=== PATIENT | female | born 2000 | race African-American/Black ===

== ENCOUNTER 2018-01-28 23:34 | Emergency (ER) | payer OTHER ==
[~2018-01-28] VITALS: Ht 162.6 cm; Wt 147.9 kg
[2018-01-29 00:13] LABS: BASOPHIL % 0.8 % (0-2)
[2018-01-29 00:17] LABS: PLATELET COUNT 600 x10^3mcL (130-400); RED CELL DISTRIBUTION WIDTH 21.5 % (11.5-14.5)
[2018-01-29 00:23] LABS: CALCIUM 9.6 mg/dL (8.5-10.1); CARBON DIOXIDE 24.8 mmol/L (21-32); CHLORIDE SERUM 105 mmol/L (98-107); CREATININE SERUM 0.8 mg/dL (0.6-1.0); GFR1 > 60 mL/min; GLUCOSE SERUM 110 mg/dL (74-106); POTASSIUM SERUM 3.8 mmol/L (3.5-5.1); SODIUM SERUM 139 mmol/L (136-145)
[2018-01-29 00:28] LABS: ALBUMIN 3.7 g/dL (3.4-5.0); ALKALINE PHOSPHATASE 99 U/L (46-116); ALT/SGPT 29 U/L (14-59); AST/SGOT 22 U/L (15-37); BILIRUBIN TOTAL 0.2 mg/dL (0.20-1.00); LIPASE 91 IU/L (73-393); TOTAL PROTEIN, SERUM 7.9 g/dL (6.4-8.2)
[2018-01-29 00:37] LABS: rbc morphology (normal/abnorm) ABNORMAL (NORMAL)
[2018-01-29 00:38] LABS: ovalocyte/elliptocyte 2+
[2018-01-29 02:51] VITALS: BP 124/76
== END 2018-01-29 02:51 | disposition home or self-care (01) ==
LOC: ED 23:34
PROVIDERS: Emergency Medicine
DX: R07.89 Other chest pain (principal)
CPT/HCPCS: 36415; 85378; Q0092

== ENCOUNTER 2018-02-26 22:32 | Emergency (ER) | payer OTHER ==
[~2018-02-26] VITALS: Ht 162.6 cm; Wt 145.1 kg
[2018-02-26 23:00] VITALS: Ht 162.6 cm; Wt 145.1 kg
[2018-02-26 23:36] LABS: UA SPECIFIC GRAVITY 1.025 (1.005-1.035); microscopic required? YES; urine erythrocyte 3+ (NEGATIVE)
[2018-02-26 23:39] LABS: BASOPHIL % 0.3 % (0-2)
[2018-02-26 23:45] LABS: CALCIUM 9.2 mg/dL (8.5-10.1); CARBON DIOXIDE 24.5 mmol/L (21-32); CHLORIDE SERUM 103 mmol/L (98-107); CREATININE SERUM 0.9 mg/dL (0.6-1.0); GFR1 > 60 mL/min; GLUCOSE SERUM 102 mg/dL (74-106); POTASSIUM SERUM 3.7 mmol/L (3.5-5.1); SODIUM SERUM 139 mmol/L (136-145)
[2018-02-26 23:47] LABS: RED CELL DISTRIBUTION WIDTH 19.9 % (11.5-14.5)
[2018-02-26 23:48] LABS: PLATELET COUNT 558 x10^3mcL (130-400)
[2018-02-26 23:50] LABS: ALBUMIN 3.8 g/dL (3.4-5.0); ALKALINE PHOSPHATASE 102 U/L (46-116); ALT/SGPT 26 U/L (14-59); AMYLASE 61 U/L (25-115); AST/SGOT 15 U/L (15-37); BILIRUBIN TOTAL 0.2 mg/dL (0.20-1.00); LIPASE 89 IU/L (73-393)
[2018-02-26 23:56] LABS: ovalocyte/elliptocyte 1+; rbc morphology (normal/abnorm) ABNORMAL (NORMAL)
[2018-02-27 01:32] VITALS: BP 131/87
== END 2018-02-27 01:32 | disposition home or self-care (01) ==
LOC: ED 22:32
PROVIDERS: Emergency Medicine
DX: N94.6 Dysmenorrhea, unspecified (principal); N39.0 Urinary tract infection, site not specified; E66.9 Obesity, unspecified; D72.829 Elevated white blood cell count, unspecified; Z68.43 Body mass index [BMI] 50.0-59.9, adult
CPT/HCPCS: 36415; 83880; J0696

== ENCOUNTER 2018-05-28 02:13 | Inpatient (IN) | payer OTHER ==
[~2018-05-28] VITALS: Ht 162.6 cm; Wt 148.8 kg
[2018-05-28 06:15] LABS: CALCIUM 9.7 mg/dL (8.5-10.1); CARBON DIOXIDE 24.1 mmol/L (21-32); CHLORIDE SERUM 106 mmol/L (98-107); CREATININE SERUM 0.8 mg/dL (0.6-1.0); GFR1 > 60 mL/min; GLUCOSE SERUM 111 mg/dL (74-106); POTASSIUM SERUM 3.9 mmol/L (3.5-5.1); SODIUM SERUM 142 mmol/L (136-145)
[2018-05-28 06:20] LABS: ALBUMIN 3.6 g/dL (3.4-5.0); ALKALINE PHOSPHATASE 98 U/L (46-116); ALT/SGPT 28 U/L (14-59); AST/SGOT 19 U/L (15-37); BILIRUBIN TOTAL 0.26 mg/dL (0.20-1.00)
[2018-05-28 07:05] LABS: RED CELL DISTRIBUTION WIDTH 20.3 % (11.5-14.5)
[2018-05-28 07:13] LABS: PLATELET COUNT 517 x10^3mcL (130-400)
[2018-05-28] MEDS ORDERED: NATURAL IRON65 MG PO (09:59)
[2018-05-28 10:49] LABS: PHOSPHOROUS 4.4 mg/dL (2.5-4.9)
[2018-05-28 10:50] VITALS: BP 134/65
[2018-05-28 10:55] LABS: T3 TOTAL 1.14 ng/mL
[2018-05-28 10:56] LABS: FREE T4 0.9 ng/dL (0.76-1.46); FREE THYROXINE INDEX 2.3 ug/dL (1.4-4.5); T4(THYROXINE) 7.3 ug/dL (4.7-13.3)
[2018-05-28 11:05] VITALS: BP 134/65
[2018-05-28 12:34] VITALS: BP 116/64
[2018-05-28 12:57] LABS: BAND NEUTROPHIL 3 % (0-10); MONOCYTE 5 % (0-7); SEGMENTED NEUTROPHILS 81 % (37-75)
[2018-05-28 12:58] LABS: ovalocyte/elliptocyte 1+; rbc morphology (normal/abnorm) ABNORMAL (NORMAL)
[2018-05-28 12:59] LABS: PLATELET MORPHOLOGY LARGE PLATELET SEEN
[2018-05-28 17:00] VITALS: BP 125/54
[2018-05-28 17:40] LABS: microscopic required? YES; urine erythrocyte TRACE (NEGATIVE)
[2018-05-28 17:52] LABS: AMPHETAMINE QUAL UR NONE DETECTED (See below)
[2018-05-28 19:34] LABS: TOTAL IRON BINDING CAPACITY 423 ug/dL (250-450)
[2018-05-28 19:42] LABS: IRON 18 ug/dL (50-170)
[2018-05-29 06:00] VITALS: BP 136/71
[2018-05-29 07:02] LABS: CALCIUM 9.3 mg/dL (8.5-10.1); CARBON DIOXIDE 23.2 mmol/L (21-32); CHLORIDE SERUM 109 mmol/L (98-107); CREATININE SERUM 0.7 mg/dL (0.6-1.0); GFR1 > 60 mL/min; GLUCOSE SERUM 99 mg/dL (74-106); MAGNESIUM 2.1 mg/dL (1.8-2.4); PHOSPHOROUS 4.6 mg/dL (2.5-4.9); SODIUM SERUM 145 mmol/L (136-145)
[2018-05-29 07:05] LABS: BASOPHIL % 0.1 % (0-2)
[2018-05-29 07:20] LABS: PLATELET COUNT 461 x10^3mcL (130-400); RED CELL DISTRIBUTION WIDTH 18.8 % (11.5-14.5)
[2018-05-29 08:35] VITALS: BP 148/91
[2018-05-29 09:12] LABS: ovalocyte/elliptocyte 1+; rbc morphology (normal/abnorm) ABNORMAL (NORMAL)
[2018-05-29] MEDS ORDERED: MOT800 PO (11:50)
[2018-05-29 12:35] VITALS: BP 148/91
== END 2018-05-29 15:45 | disposition home or self-care (01) | DRG 532 ==
LOC: ED 02:13 → MU 10:03
PROVIDERS: Emergency Medicine; Family Medicine
DX: N85.00 Endometrial hyperplasia, unspecified (principal); D50.9 Iron deficiency anemia, unspecified; N92.0 Excessive and frequent menstruation with regular cycle; R73.03 Prediabetes; D72.829 Elevated white blood cell count, unspecified; G43.909 Migraine, unspecified, not intractable, without status migrainosus; Z87.440 Personal history of urinary (tract) infections; Z79.899 Other long term (current) drug therapy
CPT/HCPCS: 83880; 84439; J0696; J1885; Q0092

== ENCOUNTER 2019-04-03 13:04 | Emergency (ER) | payer OTHER ==
[~2019-04-03] VITALS: Ht 162.6 cm; Wt 165.1 kg
[~2019-04-03 13:04] MED LIST: MOT800 PO; NATURAL IRON65 MG PO
[2019-04-03 13:06] VITALS: Ht 162.6 cm; Wt 165.1 kg
[2019-04-03 14:01] LABS: BASOPHIL % 0.3 % (0-2)
[2019-04-03 14:03] LABS: UA SPECIFIC GRAVITY 1.015 (1.005-1.035); microscopic required? YES; urine erythrocyte TRACE (NEGATIVE)
[2019-04-03 14:06] LABS: PLATELET COUNT 496 x10^3mcL (130-400); RED CELL DISTRIBUTION WIDTH 19.7 % (11.5-14.5)
[2019-04-03 14:09] LABS: CALCIUM 10.5 mg/dL (8.5-10.1); CARBON DIOXIDE 25.6 mmol/L (21-32); CHLORIDE SERUM 109 mmol/L (98-107); CREATININE SERUM 0.7 mg/dL (0.6-1.0); GFR1 > 60 mL/min; GLUCOSE SERUM 116 mg/dL (74-106); POTASSIUM SERUM 4.1 mmol/L (3.5-5.1); SODIUM SERUM 144 mmol/L (136-145)
[2019-04-03 14:14] LABS: ALBUMIN 3.4 g/dL (3.4-5.0); ALKALINE PHOSPHATASE 96 U/L (46-116); ALT/SGPT 26 U/L (14-59); AST/SGOT 12 U/L (15-37); BILIRUBIN TOTAL 0.12 mg/dL (0.20-1.00); TOTAL PROTEIN, SERUM 7.5 g/dL (6.4-8.2)
[2019-04-03 14:22] LABS: FREE T4 0.9 ng/dL (0.76-1.46); FREE THYROXINE INDEX 2.5 ug/dL (1.4-4.5); T4(THYROXINE) 7.2 ug/dL (4.7-13.3)
[2019-04-03 14:41] LABS: T3 TOTAL 1.5 ng/mL
[2019-04-03 16:19] VITALS: BP 145/87
== END 2019-04-03 16:19 | disposition home or self-care (01) ==
LOC: ED 13:04
PROVIDERS: Emergency Medicine
DX: R60.0 Localized edema (principal); D50.0 Iron deficiency anemia secondary to blood loss (chronic); E66.9 Obesity, unspecified; Z68.44 Body mass index [BMI] 60.0-69.9, adult
CPT/HCPCS: 36415; 84439; Q0092

== ENCOUNTER 2019-06-09 09:31 | Emergency (ER) | payer OTHER ==
[~2019-06-09] VITALS: Ht 162.6 cm; Wt 167.4 kg
[2019-06-09 09:34] VITALS: Ht 162.6 cm; Wt 167.4 kg
[2019-06-09 11:12] LABS: BASOPHIL % 0.1 % (0-2)
[2019-06-09 11:13] LABS: PLATELET COUNT 514 x10^3mcL (130-400)
[2019-06-09 11:15] LABS: rbc morphology (normal/abnorm) ABNORMAL (NORMAL)
[2019-06-09 11:51] LABS: CALCIUM 9.5 mg/dL (8.5-10.1); CARBON DIOXIDE 24.1 mmol/L (21-32); CHLORIDE SERUM 106 mmol/L (98-107); CREATININE SERUM 0.9 mg/dL (0.6-1.0); GFR1 > 60 mL/min; GLUCOSE SERUM 192 mg/dL (74-106); SODIUM SERUM 141 mmol/L (136-145)
[2019-06-09 11:56] LABS: ALKALINE PHOSPHATASE 107 U/L (46-116); ALT/SGPT 22 U/L (14-59); AST/SGOT 18 U/L (15-37); BILIRUBIN TOTAL 0.2 mg/dL (0.20-1.00); TOTAL PROTEIN, SERUM 7.8 g/dL (6.4-8.2)
[2019-06-09 11:58] LABS: ALBUMIN 3.3 g/dL (3.4-5.0)
[2019-06-09 12:11] VITALS: BP 140/72
== END 2019-06-09 13:01 | disposition home or self-care (01) ==
LOC: ED 09:31
PROVIDERS: Emergency Medicine
DX: N93.9 Abnormal uterine and vaginal bleeding, unspecified (principal); N39.0 Urinary tract infection, site not specified
CPT/HCPCS: J7030

== ENCOUNTER 2019-07-14 03:32 | Emergency (ER) | payer OTHER ==
[~2019-07-14] VITALS: Ht 162.6 cm; Wt 161.9 kg
[2019-07-14 04:41] LABS: UA SPECIFIC GRAVITY 1.025 (1.005-1.035); microscopic required? YES; urine erythrocyte TRACE (NEGATIVE)
[2019-07-14 04:43] LABS: CALCIUM 9.3 mg/dL (8.5-10.1); CARBON DIOXIDE 27.1 mmol/L (21-32); CHLORIDE SERUM 104 mmol/L (98-107); CREATININE SERUM 0.9 mg/dL (0.6-1.0); GFR1 > 60 mL/min; GLUCOSE SERUM 289 mg/dL (74-106); POTASSIUM SERUM 4.4 mmol/L (3.5-5.1); SODIUM SERUM 137 mmol/L (136-145)
[2019-07-14 04:44] LABS: BASOPHIL % 0 % (0-2); PLATELET COUNT 479 x10^3mcL (130-400); RED CELL DISTRIBUTION WIDTH 20.9 % (11.5-14.5)
[2019-07-14 04:48] LABS: ALBUMIN 3.1 g/dL (3.4-5.0); ALKALINE PHOSPHATASE 117 U/L (46-116); ALT/SGPT 20 U/L (14-59); AST/SGOT 12 U/L (15-37); BILIRUBIN TOTAL 0.1 mg/dL (0.20-1.00); LIPASE 114 IU/L (73-393); TOTAL PROTEIN, SERUM 7.3 g/dL (6.4-8.2)
[2019-07-14 06:03] VITALS: BP 126/84
== END 2019-07-14 06:03 | disposition home or self-care (01) ==
LOC: ED 03:32
PROVIDERS: Emergency Medicine
DX: R10.30 Lower abdominal pain, unspecified (principal); R30.0 Dysuria; K62.89 Other specified diseases of anus and rectum
CPT/HCPCS: J1885